=== PATIENT | female | born 1955 | race Caucasian/White ===

== ENCOUNTER → 2016-04-19 | Outpatient (CLI) | payer BC ==
--- NOTE | 2016-04-20 09:34 | MM ---
Reason for exam: screening (asymptomatic). Last mammogram was performed 1 year ago. History: Patient is postmenopausal and history of other cancer. Family history of breast cancer in maternal aunt. 2 core biopsies of the left breast. Core biopsy of the right breast. Excisional biopsy of the right breast. Physical Findings: A clinical breast exam by your physician is recommended on an annual basis and results should be correlated with mammographic findings. MG Screening Mammo w CAD Bilateral CC and MLO view(s) were taken. Prior study comparison: April 18, 2015, bilateral MG screening mammo w CAD. March 03, 2014, right breast MG work up mamm w CAD RT. The breast tissue is extremely dense which could obscure a lesion on mammography. Finding: There are typically benign calcifications in both breasts. Previous mammotome biopsy in the right and left breast. No significant changes in finding since April 18, 2015 and March 03, 2014. ASSESSMENT: Benign, BI-RAD 2 RECOMMENDATION: Routine screening mammogram of both breasts in 1 year.
== END | disposition home or self-care (01) ==
LOC: RADMAMWWP 07:19
PROVIDERS: ATTEND Internal Medicine
DX: Z12.31 Encounter for screening mammogram for malignant neoplasm of breast (principal)

== ENCOUNTER → 2017-04-24 | Outpatient (CLI) | payer BC ==
--- NOTE | 2017-04-25 13:28 | MM ---
Reason for exam: screening (asymptomatic). Last mammogram was performed 1 year ago. History: Patient is postmenopausal and history of other cancer. Family history of breast cancer in maternal aunt. 2 core biopsies of the left breast. Core biopsy of the right breast. Excisional biopsy of the right breast. Physical Findings: A clinical breast exam by your physician is recommended on an annual basis and results should be correlated with mammographic findings. MG Screening Mammo w CAD Bilateral CC and MLO view(s) were taken. Prior study comparison: April 19, 2016, bilateral MG screening mammo w CAD. April 18, 2015, bilateral MG screening mammo w CAD. The breast tissue is heterogeneously dense. This may lower the sensitivity of mammography. Previous mammotome biopsy in the right and left breast. Grouped calcifications left upper outer quadrant anterior to middle depth are unchanged. No significant changes when compared with prior studies. ASSESSMENT: Negative, BI-RAD 1 RECOMMENDATION: Routine screening mammogram of both breasts in 1 year.
== END | disposition home or self-care (01) ==
LOC: RADMAMWWP 08:18
PROVIDERS: ATTEND Internal Medicine
DX: Z12.31 Encounter for screening mammogram for malignant neoplasm of breast (principal)
CPT/HCPCS: 77067

== ENCOUNTER → 2018-05-05 | Outpatient (CLI) | payer BC ==
--- NOTE | 2018-05-07 09:49 | MM ---
Reason for exam: screening (asymptomatic). Last mammogram was performed 1 year ago. History: Patient is postmenopausal and has history of other cancer at age 36. Family history of breast cancer in maternal aunt. 2 core biopsies of the left breast. Core biopsy of the right breast. Excisional biopsy of the right breast. Physical Findings: A clinical breast exam by your physician is recommended on an annual basis and results should be correlated with mammographic findings. MG Screening Mammo w CAD Bilateral CC and MLO view(s) were taken. Prior study comparison: April 24, 2017, bilateral MG screening mammo w CAD. April 19, 2016, bilateral MG screening mammo w CAD. The breast tissue is heterogeneously dense. This may lower the sensitivity of mammography. Previous mammotome biopsy in the left breast x 2. Stable grouped calcifications anterior upper outer quadrant left breast. No significant changes when compared with prior studies. ASSESSMENT: Benign, BI-RAD 2 RECOMMENDATION: Routine screening mammogram of both breasts in 1 year.
== END | disposition home or self-care (01) ==
LOC: RADMAMWWP 14:22
PROVIDERS: ATTEND Internal Medicine
DX: Z12.31 Encounter for screening mammogram for malignant neoplasm of breast (principal)
CPT/HCPCS: 77067

== ENCOUNTER → 2019-08-31 | Outpatient (CLI) | payer BC ==
--- NOTE | 2019-08-31 08:10 | US ---
EXAMINATION TYPE: US abdomen complete DATE OF EXAM: 08/31/2019 COMPARISON: NONE CLINICAL HISTORY: R10.11 RT upper quadrant pain. Pt states Back/ RUQ pain, bloating feeling EXAM MEASUREMENTS: Liver Length: 14.4 cm Gallbladder Wall: 0.2 cm CBD: 0.5 cm Spleen: 10.2 cm Right Kidney: 10.2 x 5.0 x 5.1 cm Left Kidney: 11.8 x 5.9 x 5.4 cm Pancreas: Possible, ill-defined hypoechoic area in area of head of pancreas= 2.2 x 1.7 x 2.1 cm Liver: wnl Gallbladder: wnl Evidence for sonographic Bullard's sign: No CBD: wnl Spleen: wnl Right Kidney: wnl Left Kidney: wnl Upper IVC: wnl Abd Aorta: wnl The liver is homogenous. The intrahepatic portion of the IVC and proximal abdominal aorta are within normal limits. There is no evidence of cholelithiasis. Common bile duct is unremarkable. The splee n is unremarkable. Kidneys are symmetric and free of hydronephrosis. No renal lesions are seen. IMPRESSION: Focal masslike structure near the pancreatic head. CT abdomen pancreatic mass protocol re commended for further evaluation. A Yellow level critical message alert has been initiated for Laurel Campbell MD via the [facility] Critical Results System on 08/31/2019 8:07 AM. This message alert has been sent to Laurel Campbell MD v erica the preferences provided by the clinician for the receipt of Radiology Critical Findings. Message ID [id number].
[2019-08-31 08:52] LABS: Basophils # (A) 0.1 k/uL (0-0.2); Basophils % (A) 1 %; Eosinophils # (A) 0.1 k/uL (0-0.7); Eosinophils % (A) 3 %; HCT 42.4 % (34.0-46.0); HGB 13.3 gm/dL (11.4-16.0); Lymphocytes # (A) 1.6 k/uL (1.0-4.8); Lymphocytes % (A) 32 %; MCH 28.3 pg (25.0-35.0); MCHC 31.3 g/dL (31.0-37.0); MCV 90.4 fL (80.0-100.0); Mean Platelet Volume 6.8; Monocytes # (A) 0.3 k/uL (0-1.0); Monocytes % (A) 6 %; Neutrophils # (A) 2.8 k/uL (1.3-7.7); Neutrophils % (A) 55 %; Platelet Count 276 k/uL (150-450); RBC 4.69 m/uL (3.80-5.40)
[2019-08-31 09:11] LABS: ALT 22 U/L (4-34); AST 29 U/L (14-36); African American GFR (CKD) >90 (>60 ml/min/1.73 sqM); Albumin 4.4 g/dL (3.5-5.0); Alkaline Phosphatase 85 U/L (38-126); Anion Gap 7 mmol/L; Blood Urea Nitrogen 19 mg/dL (7-17); Calcium 9.8 mg/dL (8.4-10.2); Carbon Dioxide 31 mmol/L (22-30); Chloride 102 mmol/L (98-107); Cholesterol 195 mg/dL (<200); Glucose 130 mg/dL (74-99); HDL Cholesterol 64 mg/dL (40-60); LDL Cholesterol,Calculated 104 mg/dL (0-99); Non-African American GFR(CKD) >90 (>60 ml/min/1.73 sqM); Potassium 4.1 mmol/L (3.5-5.1); Sodium 140 mmol/L (137-145); Total Bilirubin 0.6 mg/dL (0.2-1.3); Total Protein 7.5 g/dL (6.3-8.2); Triglycerides 134 mg/dL (<150)
[2019-08-31 19:02] LABS: Hemoglobin A1C 6.4 % (4.0-6.0)
== END | disposition home or self-care (01) ==
LOC: RADUSWWP 07:34
PROVIDERS: ATTEND Internal Medicine
DX: Z00.01 Encounter for general adult medical examination with abnormal findings (principal); Z12.31 Encounter for screening mammogram for malignant neoplasm of breast; Z13.220 Encounter for screening for lipoid disorders; R10.11 Right upper quadrant pain; R73.9 Hyperglycemia, unspecified; E78.00 Pure hypercholesterolemia, unspecified
CPT/HCPCS: 36415; 76700; 80053; 80061; 83036; 85025

== ENCOUNTER → 2019-09-01 | Outpatient (CLI) | payer BC ==
--- NOTE | 2019-09-01 09:03 | CT ---
EXAMINATION TYPE: CT abdomen wo/w con DATE OF EXAM: 09/01/2019 COMPARISON: 08/31/2019 HISTORY: Lesion of pancreas CT DLP: 919 mGycm Automated exposure control for dose reduction was used. TECHNIQUE: Helical acquisition of images was performed from the lung bases through the top of iliac crest to include entire abdomen. CONTRAST: Performed without Oral Contrast and without and with IV Contrast, patient injected with 100 ml mL of Isovue 300. FINDINGS: LUNG BASES: No significant abnormality is appreciated. LIVER/GB: No significant abnormality is appreciated. PANCREAS: There is atrophy of the body and tail the pancreas with dilation of the pancreatic duct. Ap pears to be a localized area of hypodensity near the junction of the body and head of the pancreas me asuring 1.5 cm and there is marked fullness to the pancreatic head and uncinate process. Could not ex clude an underlying mass. Particular attention to the area of axial image 22 series 7 where there is reduced enhancement measuring 1.6 cm. SPLEEN: No significant abnormality is seen. ADRENALS: No significant abnormality is seen. KIDNEYS: Mild prominence the right renal pelvis. There is a 1.2 cm lesion involving the lower pole th e left kidney measuring 14 Hounsfield units suggestive of a simple cyst. Additional multiple hypodens ities within bilateral kidneys are too small to characterize. BOWEL: No significant abnormality is seen. LYMPH NODES: No significant abnormality is seen. OSSEOUS STRUCTURES: Hypertrophic and degenerative change of the vertebral column. OTHER: Aorta of normal caliber. No free fluid. There are prominent venous structures anteriorly which could represent varices. IMPRESSION: 1. Findings are suspicious for a 1.6 cm mass at the junction of the body and head of the pancreas. Th e remaining portion of the body and tail of the pancreas appear to be atrophied with mild pancreatic duct dilation. There is fullness to the head and uncinate process of the pancreas. Recommend MRI for further evaluation. 2. Bilateral renal lesions majority which are too small to characterize but statistically most likely related to simple cysts.
== END | disposition home or self-care (01) ==
LOC: RADCTMAIN 07:27
PROVIDERS: ATTEND Internal Medicine
DX: N28.9 Disorder of kidney and ureter, unspecified (principal)
CPT/HCPCS: 74170; Q9967

== ENCOUNTER → 2020-09-05 | Outpatient (CLI) | payer BC ==
--- NOTE | 2020-09-05 18:48 | CT ---
EXAMINATION TYPE: CT ChestAbdPelvis w con DATE OF EXAM: 09/05/2020 INDICATION: Hx Pancreatic ca, jaundice. Pt c/o abominal pain, dark urine and elevated glucose levels. COMPARISON: 09/01/2019 CT DLP: 532.50 mGycm CONTRAST: Performed with Oral Contrast and with IV Contrast, patient injected with 100 mL of Isovue 300. TECHNIQUE: Axial images at 5 mm thick sections. Reconstructed images in the coronal plane. Delayed images through the kidneys. FINDINGS: CT CHEST: Portion of the thyroid visualized is normal. No suspicious lung nodules or focal infiltrates are present. No enlarged mediastinal or hilar adenopathy is evident. The ascending aorta diameter at the level of the main pulmonary artery is 3.8 cm. The main pulmonary artery diameter at the bifurcation is 2.[address] ABDOMEN: Liver: There may be some mild fatty infiltration liver. Spleen: Normal Pancreas: There is an irregular hypodensity at the superior pancreas head currently measuring 3.3 x 2 .2 cm. Utilizing similar measurement, Previous measurement 3.2 x 2.1 cm. Pancreatic body and tail otilia ears atrophic. Some common bile duct prominence may be present. Adrenal glands: The adrenal glands are normal. Gallbladder: Breeders sludges within the gallbladder. Kidneys: No masses are evident. No hydronephrosis is present. Small cortical renal cysts are presen t. An exophytic cyst at the inferior pole left kidney measures 1.7 cm and 24 Hounsfield units . Carolyne yed images were obtained through the kidneys, which remain unremarkable. Aorta: Normal Inferior vena cava: Normal. CT PELVIS: Loops of bowel within the abdomen and pelvis are normal. There are loops of bowel which are incom pletely distended or lack oral contrast limiting their evaluation. Appendix: Normal as visualized. Urinary bladder: Normal. Genitourinary structures: Uterus is retroverted. Adnexal regions are normal. Osseous structures: No suspicious lytic or sclerotic lesions. Degenerative disc changes are in the lo wer lumbar spine. IMPRESSIONS: 1. The pancreatic head lesion appears more hypodense but within measurement error the same size as th e previous exam. 2. No suspicious changes for metastatic disease.
== END | disposition home or self-care (01) ==
LOC: RADCTMAIN 15:46
PROVIDERS: ATTEND Internal Medicine Hematology & Oncology
DX: K86.89 Other specified diseases of pancreas (principal); N28.1 Cyst of kidney, acquired
CPT/HCPCS: 71260; 74177; Q9967